=== PATIENT | female | born 1965 | race African-American/Black ===

== ENCOUNTER → 2016-11-19 | Outpatient (CLI) | payer BC ==
[~2016-11-19] MED LIST: HCTZ PO; LISINOPRIL PO
--- NOTE | ~2016-11-19 | MY11 ---
[facility] A Service of [facility] & [facility] RADIOLOGY TEXT RESULTS PATIENT: YOLY CAAL LOCATION: [facility] : 63 UNIT #: [id number] AGE: [address]: Gypsy Read APRN SEX: F ORDER DR: [id number] [address] [address] [id number] O MR#: [id number] Acc #: [id number] NAME: YOLY CAAL : 1965 SEX: F STUDY DATE/TIME: 11/19/2016 9:53 UNIT: [facility] ROOM: STUDY DESCRIPTION: MY Mammogram Screening Dig Osiel Attending Physician: Gypsy Read A.P.R.N. Referring Physician: Gypsy Read A.P.R.N. Ordering Physician: Gypsy Read A.P.R.N. Primary Care Physician: Gypsy Read A.P.R.N. MEDICAL IMAGING REPORT This report is preliminary unless electronic signature is present. EXAM Bilateral digital screening mammogram with CAD, 11/19/2016. INDICATION Routine screening. No reported problems and no personal or family history of breast cancer. No surgeries. TECHNIQUE CC and MLO views of the breast were obtained and reviewed with an FDA-approved CAD device. COMPARISON STUDIES There are no comparison studies. FINDINGS Breast parenchyma is composed of scattered fibroglandular densities. The pattern is symmetric. In the posterior 12 o'clock left breast, there is a 13 mm partially obscured ovoid nodule. Further evaluation with spot compression views and targeted ultrasound is recommended. This may represent a cyst. Scattered faint benign calcifications are present. Tortuous vessel noted in the posterior 1 o'clock position of the right breast. IMPRESSION 13 mm nodular asymmetry in the left breast at 12 o'clock. Additional views and a breast ultrasound are recommended for further assessment. Patients over the age of 40 are entered into a reminder system with target due date for the next mammogram. A result letter will also be sent to the patient. BIRADS: 0 Incomplete; need additional imaging evaluation and/or prior mammograms for comparison. STS. [facility] A Service of [facility] & [facility] RADIOLOGY TEXT RESULTS PATIENT: YOLY CAAL LOCATION: [facility] : 63 UNIT #: [id number] AGE: [address]: Gypsy Read APRN SEX: F ORDER DR: Dictated by... Marty Paz M.D. THIS IS AN ELECTRONICALLY VERIFIED REPORT Marty Paz M.D. at 11/25/2016 4:59 PM ROSAMARIA/joseline TD: 11/25/2016 10:49 JOB #: [id number] MEDICAL IMAGING REPORT Page 1 of 1
== END | disposition home or self-care (01) ==
LOC: SMAM 09:07
DX: Z12.31 Encounter for screening mammogram for malignant neoplasm of breast (principal); N64.89 Other specified disorders of breast
CPT/HCPCS: G0202